=== PATIENT | female | born 1975 | race Caucasian/White ===

== ENCOUNTER 2017-06-26 07:32 | Observation (INO) | payer OTHER, MEDICAID ==
[2017-06-26] MEDS ORDERED: ASPIRIN 81 MG TABLET, CHEWABLE PO ONE (07:45)
[2017-06-26] MEDS ORDERED: NORMAL SALINE 1000 ML 1,000 ML IV ONE (07:45)
[2017-06-26] MEDS ORDERED: DIAZEPAM INJ 10 MG/2 ML DISP.SYRIN IV ONE (07:45)
--- NOTE | 2017-06-26 08:22 | RADIOLOGY REPORT (SQ) ---
EXAM DESCRIPTION: CHEST SINGLE VIEW COMPLETED DATE/TIME: 06/26/2017 8:10 am REASON FOR STUDY: cp COMPARISON: None. EXAM PARAMETERS: NUMBER OF VIEWS: One view. TECHNIQUE: Single frontal radiographic view of the chest acquired. RADIATION DOSE: NA LIMITATIONS: None. FINDINGS: LUNGS AND PLEURA: No opacities, masses or pneumothorax. No pleural effusion. MEDIASTINUM AND HILAR STRUCTURES: No masses. Contour normal. HEART AND VASCULAR STRUCTURES: Heart normal in size. Normal vasculature. BONES: No acute findings. HARDWARE: None in the chest. OTHER: No other significant finding. IMPRESSION: NO ACUTE RADIOGRAPHIC FINDING IN THE CHEST. TECHNICAL DOCUMENTATION: JOB ID: [id number] [employer]- All Rights Reserved Reading location - IP/workstation name: [email or web address]
[2017-06-26 08:34] LABS: ABSOLUTE BASOPHILS # (AUTO) 0.1 10^3/uL (0.0-0.2); ABSOLUTE EOSINOPHILS # (AUTO) 0.1 10^3/uL (0.0-0.6); ABSOLUTE LYMPHOCYTES (AUTO) 1.2 10^3/uL (0.5-4.7); ABSOLUTE MONOCYTES (AUTO) 0.3 10^3/uL (0.1-1.4); ABSOLUTE NEUT (AUTO) 2.5 10^3/uL (1.7-8.2); BASOPHILS % (AUTO) 1.2 % (0-2); EOSINOPHILS % (AUTO) 2.2 % (0-6); HEMATOCRIT 30.2 % (36.0-47.0); HEMOGLOBIN 9.4 g/dL (12.0-15.5); LYMPHOCYTES % (AUTO) 29.6 % (13-45); MEAN CORPUSCULAR HEMOGLOBIN 22.2 pg (27.0-33.4); MEAN CORPUSCULAR VOLUME 72 fl (80-97); MONOCYTES % (AUTO) 6.8 % (3-13); PLATELET COUNT 213 10^3/uL (150-450); RED BLOOD COUNT 4.23 10^6/uL (3.72-5.28); RED CELL DISTRIBUTION WIDTH 18.5 % (11.5-14.0); SEGMENTED NEUTROPHILS % (AUTO) 60.2 % (42-78); TOTAL CELLS COUNTED % (AUTO) 100 %; WHITE BLOOD COUNT 4.2 10^3/uL (4.0-10.5)
[2017-06-26 08:50] LABS: ALANINE AMINOTRANSFERASE 23 U/L (9-52); ALBUMIN 4.2 g/dL (3.5-5.0); ALKALINE PHOSPHATASE 45 U/L (38-126); ANION GAP 10 (5-19); ASPARTATE AMINO TRANSFERASE 16 U/L (14-36); BILIRUBIN,TOTAL 0.6 mg/dL (0.2-1.3); BLOOD UREA NITROGEN 9 mg/dL (7-20); CALCIUM 9.4 mg/dL (8.4-10.2); CARBON DIOXIDE 28 mmol/L (22-30); CHLORIDE 108 mmol/L (98-107); CREATINE KINASE 80 U/L (30-135); GLUCOSE 91 mg/dL (75-110); POTASSIUM 4.1 mmol/L (3.6-5.0); TOTAL PROTEIN 6.8 g/dL (6.3-8.2)
[2017-06-26 09:02] LABS: CREATINE KINASE MB 0.32 ng/mL (<4.55); TROPONIN I < 0.012 ng/mL
--- NOTE | 2017-06-26 09:25 | EKG REPORT ---
SEVERITY:- NORMAL ECG - SINUS RHYTHM : Confirmed by: Marissa Smith 26-Jun-2017 09:24:38
[2017-06-26 09:42] LABS: APPEARANCE,URINE CLEAR; BILIRUBIN,URINE NEGATIVE (NEGATIVE); COLOR,URINE STRAW; GLUCOSE, URINE NEGATIVE (NEGATIVE); KETONES,URINE NEGATIVE (NEGATIVE); LEUKOCYTE ESTERASE,URINE NEGATIVE (NEGATIVE); NITRITE,URINE NEGATIVE (NEGATIVE); PROTEIN,URINE NEGATIVE (NEGATIVE); URINE SPECIFIC GRAVITY 1.004; UROBILINOGEN,URINE NEGATIVE mg/dL (<2.0)
[2017-06-26] MEDS ORDERED: MORPHINE SULFATE 10 MG/ML INJ IV ONE (09:52)
[2017-06-26] MEDS ORDERED: KETOROLAC TROMETHAMINE INJ/PF 30 MG/1 ML SDV IV ONE (10:04)
--- NOTE | 2017-06-26 10:56 | RADIOLOGY REPORT (SQ) ---
EXAM DESCRIPTION: CT HEAD WITHOUT COMPLETED DATE/TIME: 06/26/2017 10:24 am REASON FOR STUDY: left sided heaviness COMPARISON: None. TECHNIQUE: Axial images acquired through the brain without intravenous contrast. Images reviewed wi bone, brain and subdural windows. Additional sagittal and coronal reconstructions were generated. Images stored on PACS. All CT scanners at this facility use dose modulation, iterative reconstruction, and/or weight based d osing when appropriate to reduce radiation dose to as low as reasonably achievable (ALARA). [facility]: Dose Right [facility]: CareDose [facility]: Dose Right [facility]: Teradose 4D [facility]: Megathread RADIATION DOSE: CT Rad equipment meets quality standard of care and radiation dose reduction techniq ues were employed. CTDIvol: 53.2 mGy. DLP: 1044 mGy-cm. mGy. LIMITATIONS: None. FINDINGS: VENTRICLES: Normal size and contour. CEREBRUM: No masses. No hemorrhage. No midline shift. No evidence for acute infarction. Normal gra y/white matter differentiation. No areas of low density in the white matter. CEREBELLUM: No masses. No hemorrhage. No alteration of density. No evidence for acute infarction. EXTRAAXIAL SPACES: No fluid collections. No masses. ORBITS AND GLOBE: No intra- or extraconal masses. Normal contour of globe without masses. CALVARIUM: No fracture. PARANASAL SINUSES: No fluid or mucosal thickening. SOFT TISSUES: No mass or hematoma. OTHER: There is a small amount of air in the cavernous sinuses, right and left temporal fossa soft ti ssues, and along the right retromandibular vein. Findings are likely iatrogenic due to bubbles in th e patient's IV IMPRESSION: No CT evidence of acute ischemic change, acute intracranial hemorrhage, mass effect, or midline shift. Air bubbles in the cavernous sinuses and right and left temporal fossa soft tissues likely related to air in the patient's IV EVIDENCE OF ACUTE STROKE: NO. COMMENT: Quality ID # [id number]: Final reports with documentation of one or more dose reduction techniques (e.g., Automated exposure control, adjustment of the mA and/or kV according to patient size, use of iterative reconstruction technique) TECHNICAL DOCUMENTATION: JOB ID: [id number] [employer]- All Rights Reserved Reading location - IP/workstation name: [email or web address]
--- NOTE | 2017-06-26 11:24 | ER Document Report ---
ED General Pain - General Chief Complaint: Pain All Over Stated Complaint: CHEST PAIN Time Seen by Provider: 06/26/17 07:37 Mode of Arrival: Ambulatory Information source: Patient Notes: Patient is a 42-year-old female who presents to the ER today for chest pain left -sided with left-sided arm heaviness that began last night. Patient states that it worsened this morning and that is what prompted her to come in. She denies any nausea, vomiting, shortness of breath with this pain. Chest pain has resolved this time and she is just complaining of left arm heaviness with some slight left leg tingling. Patient has no history of heart attack, stroke, blood pressure or cholesterol issues, but does have a family history of heart attack and stroke. Patient has a history of renal insufficiency and sometimes has edema to her lower extremities,, high potassium and low sodium and is complaining of overall body cramping at this time. She denies headache. TRAVEL OUTSIDE OF THE [place] IN LAST 30 DAYS: No - Related Data Allergies/Adverse Reactions: No Known Allergies Allergy (Verified 06/26/17 08:27) Past Medical History - General Information source: Patient - Social History Smoking Status: Former Smoker Chew tobacco use (# tins/day): No Frequency of alcohol use: None Drug Abuse: None Family History: Reviewed & Not Pertinent Patient has suicidal ideation: No Patient has homicidal ideation: No Renal/ Medical History: Denies: Hx Peritoneal Dialysis Past Surgical History: Reports: Hx Breast Surgery - left lumpectomy, Hx Genitourinary Surgery - LEEP, Hx Tubal Ligation Review of Systems - Review of Systems Constitutional: No symptoms reported EENT: No symptoms reported Cardiovascular: See HPI Respiratory: No symptoms reported Gastrointestinal: No symptoms reported Genitourinary: No symptoms reported Female Genitourinary: No symptoms reported Musculoskeletal: See HPI Skin: No symptoms reported Hematologic/Lymphatic: No symptoms reported Neurological/Psychological: No symptoms reported Physical Exam - Vital signs Vitals: Temp Pulse Resp BP Pulse Ox 97.7 F 64 18 126/74 H 100 06/26/17 07:35 06/26/17 07:35 06/26/17 07:35 06/26/17 07:35 06/26/17 07:35 - Notes Notes: PHYSICAL EXAMINATION: GENERAL: Well-appearing and in no acute distress. HEAD: Atraumatic, normocephalic. EYES: Pupils equal round and reactive to light, extraocular movements intact, sclera anicteric, conjunctiva are normal. NECK: Normal range of motion, supple without lymphadenopathy LUNGS: CTAB and equal. No wheezes rales or rhonchi. HEART: left chest tender to palpation, Regular rate and rhythm without murmurs ABDOMEN: Soft, no tenderness. No guarding, no rebound BACK: no vertebral tenderness, normal ROM GI/: no CVA tenderness EXTREMITIES: Normal range of motion, no pitting edema. No cyanosis. NEUROLOGICAL: Cranial nerves grossly intact. Normal sensory/motor exams. Good and equal strength bilaterally, Kernig and Brudzinski's signs negative, Romberg' s test normal, normal heel to vincent testing PSYCH: Normal mood, normal affect. SKIN: Warm, Dry, normal turgor, no rashes or lesions noted Course - Re-evaluation Re-evalutation: 06/26/17 11:26 Cardiac enzymes are negative, CT of the head negative for any acute pathology, lab work is unremarkable today, patient feels some better for the muscle cramps with Valium and has had no chest pain, however the left-sided arm heaviness has continued and she describes left arm heaviness/tingling with left leg tingling as well. Neurological exam is normal today. However due to patient's continued symptoms that may be cardiac in nature I have admitted patient to Marlen Mistry, nurse practitioner at this time for trending of cardiac enzymes , possible stress test and chest pain rule out. - Vital Signs Vital signs: Temp Pulse Resp BP Pulse Ox 98.3 F 63 16 114/60 100 06/26/17 15:30 06/26/17 15:46 06/26/17 15:30 06/26/17 15:30 06/26/17 15:30 - Laboratory Result Diagrams: 06/26/17 08:10 06/26/17 08:10 Laboratory results interpreted by me: 06/26/17 06/26/17 08:10 08:10 Hgb 9.4 L Hct 30.2 L MCV 72 L MCH 22.2 L MCHC 31.0 L RDW 18.5 H Sodium 146.0 H Chloride 108 H Discharge - Discharge Clinical Impression: Left arm pain, Left sided chest pain Condition: Stable Disposition: ADMITTED OBSERVATION Admitting Provider: Sarah Cordon willis Unit Admitted: Telemetry
[2017-06-26] MEDS ORDERED: NITROGLYCERIN 0.4 MG/TAB 25 TAB/BOTTLE SL PRN (12:13)
[2017-06-26] MEDS: CYCLOBENZAPRINE HCL 10 MG TABLET PO PRN (13:47)
[2017-06-26] MEDS ORDERED: ACETAMINOPHEN 325 MG TABLET PO PRN (17:42)
--- NOTE | 2017-06-26 18:12 | PDOC H&P ---
History of Present Illness Admission Date/PCP: 06/26/17 12:21 Patient complains of: Chest pain and L sided weakness History of Present Illness: PHILLY MCDANIELS is a 42 year old female who presents to the emergency department with acute onset of chest pain radiating to left arm, palpitations, shortness of breath, and left leg weakness x 24 hours. The patient states she was sitting in class yesterday when her symptoms started. It began is very mild chest pain and left arm weakness, as the day progressed the "heaviness" to her left upper extremity became more pronounced and she developed left lower extremity weakness and paresthesia. The patient states she took 800 mg Motrin to alleviate her symptoms, but she experienced no relief. The patient became concerned this morning when she experienced unrelenting chest pain, in addition to her left-sided weakness, and ataxia. While in the emergency department, the patient received a dose of Valium and Toradol, which she states offered mild relief of her symptoms. Upon assessment, the patient is resting comfortably in bed on room air. She denies chest pain. She endorses left upper and lower extremity weakness and paresthesia. Her left upper extremity paresthesias exacerbated each time the automatic blood pressure cuff is inflated. On exam the patient has notable weakness to the left upper and lower extremities (4/5 strength), +decreased sensation to LUE and LLE extremities. She has mild difficulty with coordination , but no evidence of dysmetria in her upper extremities. No facial asymmetry, she denies paresthesia or decreased sensation to her face. Given the patient's worrisome symptoms, she is being admitted to the hospitalist service. The patient has few risk factors for cardiovascular disease - she has no PMH other than R renal inufficiency (~25% function) and a family history of heart disease. Will consult cardiology and plan for stress test as well as ECHOcardiogram. Additionally, plan to obtain MRI head and Cspine given her presenting symptoms. Again, the patient does not have many risk factors for a stroke, but it is considered to be a possibility. Other differential diagnoses include cord compression and multiple sclerosis. The patient states she works at [employer], and is often lifting heavy objects at work. Past Medical History Renal/ History Note: R RENAL INSUFFICIENCY ~25% FUNCTION Malignancy Medical History: Reports: Breast Cancer, Cervical Cancer Traumatic Medical History: Reports: None Past Surgical History Past Surgical History: Reports: Mastectomy - left, Tubal Ligation Social History Information Source: Patient Lives with: Family Smoking Status: Former Smoker Drugs: None - Advance Directive Resuscitation Status: Full Code Family History Family History: CAD, Hypertension, Other - ckd Parental Family History Reviewed: Yes Children Family History Reviewed: NA Sibling(s) Family History Reviewed.: Yes Medication/Allergy Home Medications: No Home Medications 06/26/17 Allergies/Adverse Reactions: No Known Allergies Allergy (Verified 06/26/17 08:27) Review of Systems Constitutional: PRESENT: headache(s) Eyes: PRESENT: visual disturbances Nose, Mouth, and Throat: PRESENT: headache(s) Cardiovascular: PRESENT: chest pain, palpitations Gastrointestinal: ABSENT: nausea, vomiting Neurological: PRESENT: abnormal gait, confusion, lack of coordination, paresthesias Physical Exam Vital Signs: Temp Pulse Resp BP Pulse Ox 98.3 F 63 16 114/60 100 06/26/17 15:30 06/26/17 15:46 06/26/17 15:30 06/26/17 15:30 06/26/17 15:30 Intake & Output 06/25/17 06/26/17 06/27/17 06:59 06:59 06:59 Weight 109.6 kg General appearance: PRESENT: no acute distress, well-developed, well-nourished Head exam: PRESENT: atraumatic Eye exam: PRESENT: conjunctiva pink, PERRLA Mouth exam: PRESENT: moist Neck exam: PRESENT: full ROM Respiratory exam: PRESENT: clear to auscultation kathrine, symmetrical, unlabored Cardiovascular exam: PRESENT: +S1, +S2 Pulses: PRESENT: normal radial pulses, normal dorsalis pedis pul GI/Abdominal exam: PRESENT: normal bowel sounds, soft. ABSENT: tenderness Rectal exam: PRESENT: deferred Extremities exam: PRESENT: full ROM - 4/5 strenght in LUE and LLE Musculoskeletal exam: PRESENT: full ROM Neurological exam: PRESENT: alert, awake, oriented to person, oriented to place , oriented to time, oriented to situation. ABSENT: normal gait Results Laboratory Results: 06/26/17 14:41 Troponin I < 0.012 Impressions: Chest X-Ray 06/26/17 07:44 IMPRESSION: NO ACUTE RADIOGRAPHIC FINDING IN THE CHEST. Head CT 06/26/17 09:44 IMPRESSION: No CT evidence of acute ischemic change, acute intracranial hemorrhage, mass effect, or midline shift. Air bubbles in the cavernous sinuses and right and left temporal fossa soft tissues likely related to air in the patient's IV EVIDENCE OF ACUTE STROKE: NO. Status: Imported from PACS Assessment & Plan - Diagnosis (1) Chest pain Qualifiers: Chest pain type: unspecified Qualified Code(s): R07.9 - Chest pain, unspecified Is this a current diagnosis for this admission?: Yes Plan: Unclear etiology at this time. Patient endorses a 24-hour history of left- sided chest pain radiating to her left arm. The patient endorses a family history of heart disease, but she herself does not have a history of cardiovascular disease EKG shows normal sinus rhythm, no evidence of acute infarction or ischemia. Troponin<0.012, continue to trend 2 CXR benign Cardiology consulted, plan for echocardiogram and stress test. Daily aspirin Initiate statin therapy (2) Left-sided weakness Is this a current diagnosis for this admission?: Yes Plan: The patient endorses a 24 hour history of left-sided weakness, she states that her left upper extremity and left lower extremity feel "heavy" The patient states she has been experiencing ataxia and vision changes since 24 hrs prior to arrival Patient does not have many risk factors for stroke, she has no history of cardiovascular disease, she is a young (otherwise healthy) female. Other possibilities include cord compression, multiple sclerosis, or (less likely) stress induced psychosomatic symptomology Plan for MRI of head and cervical spine. Talked with radiologist, if head and cspine are negative, will plan for MRI T&L spine tomorrow Aspirin and statin therapy PT OT consult Bedside swallow evaluation - Time Critical Time spent with patient: 15-24 minutes Anticipated discharge: Home Within: Other - unknown at this time - Inpatient Certification Based on my medical assessment, after consideration of the patient's comorbidities, presenting symptoms, or acuity I expect that the services needed warrant INPATIENT care.: Yes I certify that my determination is in accordance with my understanding of Medicare's requirements for reasonable and necessary INPATIENT services [42 CFR 412.3e].: Yes Medical Necessity: Risk of Complication if Not Cared For in Hospital
[2017-06-26] MEDS ORDERED: IBUPROFEN 800 MG TABLET PO ONE (18:30)
[2017-06-26] MEDS: ATORVASTATIN CALCIUM 20 MG TABLET PO SCH (22:44)
[2017-06-27] MEDS: CYCLOBENZAPRINE HCL 10 MG TABLET PO PRN ×2 (00:41→23:51)
[2017-06-27 06:39] LABS: HEMATOCRIT 28.8 % (36.0-47.0); HEMOGLOBIN 9.1 g/dL (12.0-15.5); MEAN CORPUSCULAR HEMOGLOBIN 22.4 pg (27.0-33.4); MEAN CORPUSCULAR HGB CONC 31.6 g/dL (32.0-36.0); MEAN CORPUSCULAR VOLUME 71 fl (80-97); PLATELET COUNT 186 10^3/uL (150-450); RED BLOOD COUNT 4.06 10^6/uL (3.72-5.28); RED CELL DISTRIBUTION WIDTH 18.3 % (11.5-14.0); WHITE BLOOD COUNT 4.6 10^3/uL (4.0-10.5)
[2017-06-27 06:52] LABS: ANION GAP 9 (5-19); BLOOD UREA NITROGEN 12 mg/dL (7-20); CALCIUM 8.9 mg/dL (8.4-10.2); CARBON DIOXIDE 24 mmol/L (22-30); CHLORIDE 111 mmol/L (98-107); CHOLESTEROL 144.72 mg/dL (0-200); GLUCOSE 86 mg/dL (75-110); POTASSIUM 4.3 mmol/L (3.6-5.0); TRIGLYCERIDES 47 mg/dL (<150)
[2017-06-27 07:03] LABS: DIRECT LDL 69 mg/dL (<100)
[2017-06-27 08:03] LABS: ERYTHROCYTE SEDIMENTATION RATE 20 mm/hr (0-20)
--- NOTE | 2017-06-27 08:23 | RADIOLOGY REPORT (SQ) ---
EXAM DESCRIPTION: MRI HEAD COMBO COMPLETED DATE/TIME: 06/26/2017 7:23 pm REASON FOR STUDY: NEW ONSET ATAXIA AND LUE PARASTHESIA COMPARISON: CT brain 06/26/2017 TECHNIQUE: Multiplanar imaging includes noncontrasted T1, T2, FLAIR, diffusion with ADC map and post gadolinium contrast T1 sequences. Images stored on PACS. CONTRAST TYPE AND DOSE: 20 mL Multihance. RENAL FUNCTION: GFR > 60. LIMITATIONS: None. FINDINGS: ANATOMY: No anomalies. Normal vascular flow voids. Pituitary fossa normal. CSF SPACES: Normal in size and contour. No hemorrhage. CEREBRUM: Sulci and gyri normal in size and contour. Normal white matter signal on FLAIR imaging. No evidence of hemorrhage, mass, or extraaxial fluid collection. No abnormal enhancement post contrast. POSTERIOR FOSSA: No signal alteration. No hemorrhage. No edema, masses, or mass effect. Internal marycarmen tory canals, cerebellopontine angles, mastoids normal. No enhancing lesions. No abnormal enhancement post contrast. DIFFUSION IMAGING: Negative for acute or subacute infarction. ORBITS: No masses. Globes normal. PARANASAL SINUSES: No fluid levels. Mucosa normal. OTHER: No other significant finding. IMPRESSION: NORMAL MRI OF THE BRAIN WITHOUT AND WITH INTRAVENOUS GADOLINIUM CONTRAST. EVIDENCE OF ACUTE STROKE: NO. TECHNICAL DOCUMENTATION: JOB ID: [id number] [employer]- All Rights Reserved Reading location - IP/workstation name: [email or web address]
--- NOTE | 2017-06-27 08:26 | RADIOLOGY REPORT (SQ) ---
EXAM DESCRIPTION: MRI CERVICAL SPINE COMBO COMPLETED DATE/TIME: 06/26/2017 7:23 pm REASON FOR STUDY: NEW ONSET LUE PARASTHESIA COMPARISON: CT brain 06/26/2017, MRI brain 06/26/2017 TECHNIQUE: Sagittal and Axial imaging includes T1, T2, STIR and gradient echo sequences. T1 post yolanda olinium sequences. CONTRAST TYPE AND DOSE: 20 mL Multihance. RENAL FUNCTION: GFR > 60. LIMITATIONS: None. FINDINGS: ALIGNMENT: Normal. VERTEBRAE: Intact. BONE MARROW: Normal. No marrow replacement or reactive changes. DISCS: Normal. No significant abnormal signal or loss of height. HARDWARE: None in the spine. CORD AND BASE OF BRAIN: Normal in size and signal intensity. SOFT TISSUES: No soft tissue masses. C1-C2: No significant spinal stenosis. C2-C3: No significant spinal stenosis or exit foraminal stenosis. C3-C4: No significant spinal stenosis or exit foraminal stenosis. C4-C5: No significant spinal stenosis or exit foraminal stenosis. C5-C6: No significant spinal stenosis or exit foraminal stenosis. C6-C7: No significant spinal stenosis or exit foraminal stenosis. Minimal posterior disc bulging. C7-T1: No significant spinal stenosis or exit foraminal stenosis. UPPER THORACIC: Incompletely imaged. No significant spinal stenosis or exit foraminal stenosis. ENHANCEMENT: No abnormal spinal cord or posterior fossa enhancement. No abnormal vertebral body enha ncement or intervertebral disc enhancement. OTHER: No other significant finding. IMPRESSION: NORMAL MRI CERVICAL SPINE WITHOUT AND WITH CONTRAST. COMMENT: None. TECHNICAL DOCUMENTATION: JOB ID: [id number] [employer]- All Rights Reserved Reading location - IP/workstation name: [facility]-RR
--- NOTE | 2017-06-27 09:44 | EKG REPORT ---
SEVERITY:- ABNORMAL ECG - SINUS OR ECTOPIC ATRIAL RHYTHM RIGHT AXIS DEVIATION PROBABLE INFERIOR INFARCT, AGE INDETERMINATE LATERAL LEADS ARE ALSO INVOLVED : Confirmed by: Marissa Smith 27-Jun-2017 09:44:33
[2017-06-27] MEDS: ASPIRIN 81 MG TABLET, CHEWABLE PO SCH (11:09)
--- NOTE | 2017-06-27 12:05 | PDOC CONSULTATION ---
Consultation Consult Date: 06/26/17 Attending physician:: TORIBIO LOYOLA Consult reason:: Chest pain History of Present Illness Admission Date/PCP: 06/26/17 12:21 Patient complains of: Chest pain History of Present Illness: PHILLY MCDANIELS is a 42 year old female who presents to the emergency department with acute onset of chest pain radiating to left arm, palpitations, shortness of breath, and left leg weakness x 24 hours. The patient states she was sitting in class yesterday when her symptoms started. It began is very mild chest pain and left arm weakness, as the day progressed the "heaviness" to her left upper extremity became more pronounced and she developed left lower extremity weakness and paresthesia. The patient states she took 800 mg Motrin to alleviate her symptoms, but she experienced no relief. The patient became concerned this morning when she experienced unrelenting chest pain, in addition to her left-sided weakness, and ataxia. While in the emergency department, the patient received a dose of Valium and Toradol, which she states offered mild relief of her symptoms. Upon assessment, the patient is resting comfortably in bed on room air. She denies chest pain. She endorses left upper and lower extremity weakness and paresthesia. Her left upper extremity paresthesias exacerbated each time the automatic blood pressure cuff is inflated. On exam the patient has notable weakness to the left upper and lower extremities (4/5 strength), +decreased sensation to LUE and LLE extremities. She has mild difficulty with coordination , but no evidence of dysmetria in her upper extremities. No facial asymmetry, she denies paresthesia or decreased sensation to her face. Given the patient's worrisome symptoms, she is being admitted to the hospitalist service. The patient has few risk factors for cardiovascular disease - she has no PMH other than R renal inufficiency (~25% function) and a family history of heart disease. Will consult cardiology and plan for stress test as well as ECHOcardiogram. Additionally, plan to obtain MRI head and Cspine given her presenting symptoms. Again, the patient does not have many risk factors for a stroke, but it is considered to be a possibility. Other differential diagnoses include cord compression and multiple sclerosis. The patient states she works at [email or web address], and is often lifting heavy objects at work. This history was reviewed and confirmed. Patient claims the chest pain does tend to get worse when she uses her left arm. She also describes the chest discomfort getting worse with position, twisting and turning. A 2D echo and a nuclear stress test has already been ordered by the hospitalist with which I agree. Patient is not very confident if she will be able to walk on the treadmill. Past Medical History Cardiac Medical History: Reports: Hyperlipidema Malignancy Medical History: Reports: Breast Cancer, Cervical Cancer Traumatic Medical History: Reports: None Past Surgical History Past Surgical History: Reports: Mastectomy - left, Tubal Ligation Social History Information Source: Patient Lives with: Family Smoking Status: Former Smoker Drugs: None - Advance Directive Resuscitation Status: Full Code Surrogate healthcare decision maker:: Patient's mother is the surrogate decision-maker Family History Family History: CAD Parental Family History Reviewed: Yes Children Family History Reviewed: Yes Sibling(s) Family History Reviewed.: Yes Medication/Allergy Home Medications: Aspirin [Aspirin 81 mg Chewable Tablet] 81 mg PO DAILY tab.chew 06/28/17 Atorvastatin Calcium [Lipitor 20 mg Tablet] 20 mg PO QHS #30 tablet 06/28/17 Cyclobenzaprine HCl [Flexeril 10 mg Tablet] 10 mg PO Q8HP PRN 14 Days #42 tablet 06/28/17 Allergies/Adverse Reactions: No Known Allergies Allergy (Verified 06/26/17 08:27) Review of Systems Review of Systems: Please see history of present illness and past medical history as wall. Constitutional: No fever or chills reported. Head : No recent chronic headaches, recent head injury. Eyes: No recent eye pain, diplopia, redness, discharge, acute visual changes. Ears: No recent chronic ear pain, acute hearing loss, ear discharge. Oral cavity: No recent ulcerations, bleeding, oral cavity discomfort. Neck: No recent acute neck pain reported. Hematologic: No recent easy bruising or bleeding or hematologic malignancy reported. History of breast cancer. Lymphatic: No recent lymphatic malignancy, chronic lymphadenopathy reported yet Cardiovascular system review: See history of present illness. Intermittent pedal edema noted. Edema worse on the left side. Respiratory system review: No recent chronic cough, hemoptysis, blood clots in the lungs reported. Mild Shortness of breath on exertion. Gastrointestinal system review: Negative for any recent acute or chronic abdominal pain, hematemesis, melena, recent change in bowel habits. Genitourinary system review: No recent acute or chronic hematuria, flank pain, UTI etc. reported. Skin system review: Negative for any recent abnormal bruising, no rash, no pruritus reported. Neurologic: No prior history of strokes, mini strokes, seizure disorder. Psychologic: No history of major psychosis or major depression reported. Musculoskeletal: Minor aches and pains reported. No acute joint swelling reported. Endocrine: No recent polyuria, polydipsia, recent heat or cold intolerance. Physical Exam Vital Signs: Temp Pulse Resp BP Pulse Ox 98.3 F 73 16 114/60 100 06/26/17 15:30 06/26/17 19:00 06/26/17 15:30 06/26/17 15:30 06/26/17 15:30 Intake & Output 06/25/17 06/26/17 06/27/17 06:59 06:59 06:59 Intake Total 240 Balance 240 Weight 109.6 kg Exam: GENERAL: well-nourished and in no acute distress. Alert and oriented x3 HEAD: Atraumatic, normocephalic. EYES: Pupils equal round and reactive to light, extraocular movements intact, sclera anicteric, conjunctiva are normal. ENT: TMs normal, nares patent, oropharynx clear without exudates. Moist mucous membranes. No oral ulcerations or bleeding gums noted NECK: supple without lymphadenopathy. Trachea is central. No cervical or axillary lymphadenopathy noted. Carotids are 2+, JVD WNL LUNGS: Respiration seems nonlabored, no significant accessory muscle action noted. Breath sounds clear to auscultation bilaterally and equal noted. No wheezes rales or rhonchi noted. No significant dullness noted on percussion. CHEST: Palpation of the chest wall shows significant chest wall tenderness, left -sided chest. No other significant abnormalities noted. History of mastectomy HEART: [employer], No PSH, 1/6 YEISON aortic area, 1/6 shine systolic murmur mitral area, no rubs, no gallops. ABDOMEN: Soft, no significant tenderness appreciated, normoactive bowel sounds. No guarding, no rebound. No rigidity noted . No masses appreciated. EXTREMITIES: Pedal pulses are 1-2+, no calf tenderness noted. No clubbing or cyanosis. negative pedal edema noted NEUROLOGICAL: Focused neurological exam showed no significant neurologic deficit. Normal speech, no focal weakness appreciated. PSYCH: Normal mood, normal affect. Judgment and insight within normal limits. SKIN: No significant ecchymosis, skin is noted to be warm. MUSCULOSKELETAL EXAM: No significant acute joint swelling noted. Results Laboratory Results: 06/26/17 14:41 Troponin I < 0.012 EKG Comments: Sinus rhythm, no acute ST-T wave changes are noted. Impressions: Chest X-Ray 06/26/17 07:44 IMPRESSION: NO ACUTE RADIOGRAPHIC FINDING IN THE CHEST. Head CT 06/26/17 09:44 IMPRESSION: No CT evidence of acute ischemic change, acute intracranial hemorrhage, mass effect, or midline shift. Air bubbles in the cavernous sinuses and right and left temporal fossa soft tissues likely related to air in the patient's IV EVIDENCE OF ACUTE STROKE: NO. Assessment & Plan - Diagnosis (1) Chest pain Qualifiers: Chest pain type: unspecified Qualified Code(s): R07.9 - Chest pain, unspecified Is this a current diagnosis for this admission?: Yes (2) Left arm pain Is this a current diagnosis for this admission?: Yes (3) Left-sided weakness Is this a current diagnosis for this admission?: Yes (4) Anemia Qualifiers: Anemia type: unspecified type Qualified Code(s): D64.9 - Anemia, unspecified Is this a current diagnosis for this admission?: Yes (5) Obesity Qualifiers: Obesity type: unspecified obesity type Obesity classification: unspecified obesity classification Is this a current diagnosis for this admission?: Yes (6) HLD (hyperlipidemia) Qualifiers: Hyperlipidemia type: unspecified Qualified Code(s): E78.5 - Hyperlipidemia , unspecified Is this a current diagnosis for this admission?: Yes - Notes Notes: Chest pain: [place] to be musculoskeletal. Agree that patient will benefit from 2D echocardiogram and a stress test given her other symptoms. These were already ordered by the hospitalist. Will get them performed. Left arm pain: Exact etiology not clear. Agree with MRI of the spine. Left-sided weakness: Exact etiology not clear. Agree with MRI of the brain and CT scan of the brain. MRI brain results not available. Anemia: Patient is noted to have mild anemia. May consider workup. Obesity: Patient will benefit from weight loss, increasing physical activity, calorie restriction. Discussed that she might benefit from sleep study as an outpatient as she does have problems with both falling asleep and staying asleep. Dyslipidemia: Continue current statin therapy at current dose. - Time Time Spent: 30 to 50 Minutes Medications reviewed and adjusted accordingly: Yes
[2017-06-27] MEDS ORDERED: REGADENOSON INJ 0.4 MG/5 ML DISP.SYRIN IV ONE (12:41)
[2017-06-27] MEDS ORDERED: AMINOPHYLLINE INJ/PF 250 MG/10 ML SDV IV ONE (12:41)
--- NOTE | 2017-06-27 13:19 | DRAGON STRESS TEST REPORT ---
INTRAVENOUS LEXISCAN CARDIOLITE STRESS TEST USING SINGLE PHOTON EMMISION COMPUTERIZED TOMOGRAPHIC. DATE OF PROCEDURE: June 27, 2017, INDICATION : Chest pain CARDIAC RISK FACTORS: Dyslipidemia, family history of heart disease RESTING EKG: Sinus rhythm without any baseline ST-T wave changes STRESS EKG: No significant ST segment changes noted with LexiScan bolus REASON FOR TERMINATION: Protocol. PROCEDURE REPORT: Baseline heart rate 66 beats per minute with blood pressure of 102/64. Patient had no significant complaints. Patient was bolused with Lexiscan 0.4 mg intravenously followed by saline bolus. Heart rate at 2 minutes post bolus 91 with a blood pressure of 107/51. 3 minutes post bolus heart rate 86 with blood pressure of 105/58. Peak heart rate was at 1 minute post bolus at 111. No significant EKG changes were noted. Patient had no significant complaints during the procedure or postprocedure. Patient injected with Aminophyllin 75 mg at 3 minutes or later after Lexiscan bolus. CONCLUSIONS: Normal EKG and hemodynamic response to IV LexiScan. NUCLEAR DATA: At rest the patient was given 14.45 millicuries of technetium 99 sestamibi injected intravenously. As per protocol rest gated SPECT images were obtained. On day of stress test, the patient was given intravenous LexiScan at a dose of 0.4 mg in 5 mL intravenously, followed by flush with normal saline. Subsequently the stress dose of 43.6 millicuries of technetium 99 sestamibi was injected intravenously. As per protocol stress gated images were obtained. NUCLEAR INTERPRETATION: Both raw and processed data were used for interpretation. Visual, qualitative, computer-generated quantitative data was used. There was good myocardial uptake of technetium compound. Motion artifact and soft tissue attenuations were noted. Increased visceral uptake was noted, this did cause some difficulty with interpretation of the inferior wall perfusion. Mild decreased uptake was noted in the basal and mid inferior wall, SDS of 2, but no corresponding wall motion abnormalities noted. [place] to be related to diaphragmatic attenuation artifact/visceral subtraction artifact. On raw images, perfusion seemed intact. No definitive areas of transient perfusion defect noted, No definitive areas of fixed perfusion defect or scars noted. EKG gated imaging showed LV EF at 44 %, rest and stress gated EF similar visually. T. I D. ratio was 1.12. Lung heart ratio noted to be within normal limits 0.30. No significant extracardiac and abnormal radiotracer activities were noted. RV free wall uptake was noted to be WNL. IMPRESSION: Also refer to comments under nuclear interpretation. Also test results needs to be interpreted in the context of pretest probability. 1. No definitive areas of transient perfusion defect noted. 2. There is no definitive scintigraphic evidence of myocardial infarction/scar. 3. EKG gated imaging shows left ventricular ejection fraction of approx. 44 %. 4. Clinical correlation requested as occasionally single vessel disease or balanced ischemia could be missed. In approximately 10% of the cases Lexiscan may not cause adequate vasodilatory stress. RECOMMENDATIONS: Aggressive risk factor modification and medical management. Further evaluation may be needed if continued symptoms or other high risk indicators are noted on clinical evaluation. Close cardiology follow-up is also recommended. Clinical correlation with echocardiogram derived ejection fraction. Inability to exercise by itself can lead to increased cardiovascular event risks. Consider cardiology consultation and or follow-up if clinically indicated. I am available for cardiology evaluation and consultation if requested by the decorator store, unless patient already has a environmental test technician. LORETTA
--- NOTE | 2017-06-27 16:56 | RADIOLOGY REPORT (SQ) ---
EXAM DESCRIPTION: CAROTID DOPPLER COMPLETED DATE/TIME: 06/27/2017 4:46 pm REASON FOR STUDY: new L sided weakness COMPARISON: MRI brain 06/26/2017 CT brain 06/26/2017 TECHNIQUE: Grayscale ultrasound, Doppler velocity and spectra, and color Doppler images acquired of the extra-cranial carotid and vertebral arteries. Images stored on PACS. LIMITATIONS: None. FINDINGS: RIGHT CAROTID CCA Velocities: Within normal limits. ICA Velocities Peak systolic 0.75 m/s. End diastolic 0.23 m/s. Proximal ICA/CCA peak systolic ratio 1.0. Spectra normal. No significant plaque. LEFT CAROTID CCA Velocities: Within normal limits. ICA Velocities Peak systolic 1.02 m/s. End diastolic 0.34 m/s. Proximal ICA/CCA peak systolic ratio 1.2. Spectra normal. No significant plaque. VERTEBRAL ARTERIES: Antegrade flow. Normal waveforms. SUBCLAVIAN ARTERIES: Not evaluated OTHER: No other significant finding. IMPRESSION: NO HEMODYNAMICALLY SIGNIFICANT STENOSIS. COMMENT: Quality ID #[id number]: Velocity criteria are extrapolated from the diameter data as defined by t he Society of Radiologists in Ultrasound Consensus Conference. Radiology 2003: 229; 340-346. TECHNICAL DOCUMENTATION: JOB ID: [id number] [employer]- All Rights Reserved Reading location - IP/workstation name: [email or web address]
--- NOTE | 2017-06-27 16:59 | PDOC PROGRESS REPORT ---
Subjective Progress Note for:: 06/27/17 Subjective:: PHILLY MCDANIELS is a 42 year old female who presented to the emergency department with chest pain, weakness to her LUE and LLE, and ataxia. Her only PMH is R renal insufficiency (~25% functioning). The patient was seen this afternoon on rounds following her cardiac stress test. The patient is awake and resting in bed. She continues to endorse left- sided weakness, although she states her paresthesia has mildly improved in her left upper extremity. She denies chest pain or shortness of breath. MRI of head and C-spine are normal. Cardiac stress test, per Dr. Smith, was normal. The patient is currently awaiting an echocardiogram and carotid Dopplers. Reason For Visit: CHEST PAIN; L SIDED PARASTHESIA Physical Exam Vital Signs: Temp Pulse Resp BP Pulse Ox 97.8 F 74 17 109/64 100 06/27/17 11:00 06/27/17 14:00 06/27/17 11:00 06/27/17 11:00 06/27/17 11:00 Intake & Output 06/26/17 06/27/17 06/28/17 06:59 06:59 06:59 Intake Total 690 Balance 690 Weight 106.1 kg General appearance: PRESENT: no acute distress, well-developed, well-nourished Eye exam: PRESENT: conjunctiva pink, PERRLA Mouth exam: PRESENT: moist, tongue midline, other - No evidence of facial droop or unilateral deficits of the face Neck exam: PRESENT: full ROM Respiratory exam: PRESENT: clear to auscultation kathrine, symmetrical, unlabored Cardiovascular exam: PRESENT: RRR, +S1, +S2 Pulses: PRESENT: normal radial pulses, normal dorsalis pedis pul GI/Abdominal exam: PRESENT: normal bowel sounds, soft. ABSENT: tenderness Rectal exam: PRESENT: deferred Extremities exam: PRESENT: full ROM - 4/5 strenght in LUE and LLE Musculoskeletal exam: PRESENT: ambulatory, full ROM - 4/5 strenght in LUE and LLE Neurological exam: PRESENT: alert, awake, oriented to person, oriented to place , oriented to time, oriented to situation Psychiatric exam: PRESENT: appropriate affect Results Laboratory Results: 06/27/17 06:11 06/27/17 06:11 06/27/17 06/27/17 06/27/17 06:11 06:11 06:11 WBC 4.6 RBC 4.06 Hgb 9.1 L Hct 28.8 L MCV 71 L MCH 22.4 L MCHC 31.6 L RDW 18.3 H Plt Count 186 Sodium 144.0 Potassium 4.3 Chloride 111 H Carbon Dioxide 24 Anion Gap 9 BUN 12 Creatinine 0.73 Est GFR ( Amer) > 60 Est GFR (Non-Af Amer) > 60 Glucose 86 Calcium 8.9 Phosphorus 4.0 Magnesium 1.9 Triglycerides 47 Cholesterol 144.72 LDL Cholesterol Direct 69 VLDL Cholesterol 9.0 L HDL Cholesterol 55 TSH 2.61 06/26/17 06/26/17 06/27/17 14:41 20:02 02:10 Troponin I < 0.012 < 0.012 < 0.012 Impressions: Cervical Spine MRI 06/26/17 00:00 IMPRESSION: NORMAL MRI CERVICAL SPINE WITHOUT AND WITH CONTRAST. Head MRI 06/26/17 00:00 IMPRESSION: NORMAL MRI OF THE BRAIN WITHOUT AND WITH INTRAVENOUS GADOLINIUM CONTRAST. EVIDENCE OF ACUTE STROKE: NO. Chest X-Ray 06/26/17 07:44 IMPRESSION: NO ACUTE RADIOGRAPHIC FINDING IN THE CHEST. Head CT 06/26/17 09:44 IMPRESSION: No CT evidence of acute ischemic change, acute intracranial hemorrhage, mass effect, or midline shift. Air bubbles in the cavernous sinuses and right and left temporal fossa soft tissues likely related to air in the patient's IV EVIDENCE OF ACUTE STROKE: NO. Status: Imported from PACS Assessment & Plan - Diagnosis (1) Chest pain Qualifiers: Chest pain type: unspecified Qualified Code(s): R07.9 - Chest pain, unspecified Is this a current diagnosis for this admission?: Yes Plan: Unclear etiology at this time. Patient endorses a 24-hour history of left- sided chest pain radiating to her left arm. The patient endorses a family history of heart disease, but she herself does not have a history of cardiovascular disease EKG shows normal sinus rhythm, no evidence of acute infarction or ischemia. Serial troponin<0.012, no longer trending CXR benign Cardiology consulted. Stress test completed today, per Dr. Smith, results were normal. Patient still awaiting echocardiogram Daily aspirin and statin therapy (2) Left-sided weakness Is this a current diagnosis for this admission?: Yes Plan: The patient endorses a 48 hour history of left-sided weakness, she states that her left upper extremity and left lower extremity feel "heavy" The patient states she has been experiencing ataxia and vision changes since 24 hrs prior to arrival MRI of head and cervical spine normal. Plan for carotid Doppler to complete TIA workup. Aspirin and statin therapy PT OT worked with the patient today. They state that the patient is safe to get up out of bed as long as there is standby assistance, including family members. The patient was able to ambulate, although she needs constant reminder to lift her left leg while ambulating. Bedside swallow evaluation completed by nursing staff, patient able to tolerate all p.o. intake. If carotid doppler is negative, and there is no indication for her L sided weakness, plan to discharge patient home and have her follow-up with an outpatient neurologist. (3) Renal insufficiency Is this a current diagnosis for this admission?: Yes Plan: Patient endorses a history of right renal insufficiency, stating that her kidney only functions at approximately 25%. Creatinine 0.73 today. Patient voiding without difficulty. Avoid nephrotoxic medications. - Time Time Spent with patient: 15-24 minutes Medications reviewed and adjusted accordingly: Yes Anticipated discharge: Home Within: within 36 hours - Inpatient Certification Based on my medical assessment, after consideration of the patient's comorbidities, presenting symptoms, or acuity I expect that the services needed warrant INPATIENT care.: Yes I certify that my determination is in accordance with my understanding of Medicare's requirements for reasonable and necessary INPATIENT services [42 CFR 412.3e].: Yes Medical Necessity: Risk of Complication if Not Cared For in Hospital - Plan Summary Plan Summary: At this time, the patient is currently waiting to have her echocardiogram and carotid Dopplers completed. Will have better idea regarding treatment plan following the completion of these 2 tests.
--- NOTE | 2017-06-27 19:12 | XCELERA REPORT ---
[address] [address] Transthoracic Echocardiogram Report Name: PHILLY MCDANIELS Age: 42 yrs Gender: Female : 1975 Patient Status: Inpatient Patient Location: [address] [place] [address] Study Date: 06/27/2017 03:17 PM Height: 69 in Weight: 236 lb BSA: 2.2 m2 Procedure: A complete two-dimensional transthoracic echocardiogram was performed (2D, M-mode, spectral and color flow Doppler). The study was technically adequate with some images being suboptimal in quality. Reason For Study: CHEST PAIN Ordering Physician: EVELIA GALVAN Performed By: Nichelle Campos Interpretation Summary Left ventricular systolic function is low normal. Doppler measurements suggest normal left ventricular diastolic function There is normal left ventricular wall thickness. The left ventricle is grossly normal size. No regional wall motion abnormalities noted. The right ventricular systolic function is normal. The right ventricle is grossly normal size. The left atrial size is normal. The right atrium is normal in size There is a trace to mild amount of mitral regurgitation There is no mitral valve stenosis. There is no aortic valve stenosis No aortic regurgitation is present. There is a trace or physiologic amount of tricuspid regurgitation Tricuspid regurgitation jet envelope not well defined to measure RV systolic pressure accurately. The aortic root is not well visualized but is probably normal size. The inferior vena cava appeared normal and decreased < 50% with respiration (RAP 10-15 mmHg) There is no pericardial effusion. MMode/2D Measurements & Calculations RVDd: 2.7 cm LVIDd: 5.1 cm FS: 31.8 % Ao root diam: 2.8 cm IVSd: 0.80 cm LVIDs: 3.5 cm EDV(Teich): 123.5 ml LVPWd: 0.99 cm ESV(Teich): 49.9 ml Ao root area: 6.3 cm2 EF(Teich): 59.6 % Doppler Measurements & Calculations MV E max reno: MV dec slope: Ao V2 max: LV V1 max P.5 cm/sec 166.9 cm/sec 5.2 mmHg MV A max reno: 336.8 cm/sec2 Ao max PG: LV V1 max: 52.4 cm/sec MV dec time: 11.1 mmHg 114.0 cm/sec MV E/A: 1.6 0.25 sec PA V2 max: TR max reno: 91.0 cm/sec 205.6 cm/sec PA max PG: TR max P.9 mmHg 3.3 mmHg Left Ventricle The left ventricle is grossly normal size. There is normal left ventricular wall thickness. Left ventricular systolic function is low normal. Doppler measurements suggest normal left ventricular diastolic function. No regional wall motion abnormalities noted. Right Ventricle The right ventricle is grossly normal size. There is normal right ventricular wall thickness. The right ventricular systolic function is normal. Atria The right atrium is normal in size. The left atrial size is normal. Interarterial septum not well visualized and not well dopplered. Cannot comment on ASD/PFO presence. Mitral Valve The mitral valve is grossly normal. There is no mitral valve stenosis. There is a trace to mild amount of mitral regurgitation. Aortic Valve The aortic valve is normal in structure and functions normally. There is no aortic valve stenosis. No aortic regurgitation is present. Tricuspid Valve The tricuspid valve is not well visualized, but is grossly normal. There is no tricuspid stenosis. There is a trace or physiologic amount of tricuspid regurgitation. Tricuspid regurgitation jet envelope not well defined to measure RV systolic pressure accurately. Pulmonic Valve The pulmonic valve is not well visualized. Great Vessels The aortic root is not well visualized but is probably normal size. The inferior vena cava appeared normal and decreased < 50% with respiration (RAP 10-15 mmHg). Effusions There is no pericardial effusion. : EVELIA GALVAN > Marissa Smith
--- NOTE | 2017-06-27 20:23 | PDOC PROGRESS REPORT ---
Subjective Progress Note for:: 06/27/17 Subjective:: Patient seems to be doing better with gradual improvement. Chest pain has improved. He still has some numbness and heaviness left-sided body. Patient denying any PND, orthopnea. Patient denied any sustained palpitations, dizziness, syncope, near syncope. Patient denying any fever chills. Patient denying any other significant discomfort. Patient is maintaining sinus rhythm. Review of systems: Rest review of systems negative. Medications: Medications have been reviewed. Reason For Visit: CHEST PAIN; L SIDED PARASTHESIA Physical Exam Vital Signs: Temp Pulse Resp BP Pulse Ox 97.8 F 78 17 109/64 100 06/27/17 11:00 06/27/17 19:00 06/27/17 11:00 06/27/17 11:00 06/27/17 11:00 Intake & Output 06/26/17 06/27/17 06/28/17 06:59 06:59 06:59 Intake Total 690 1140 Balance 690 1140 Weight 106.1 kg Exam: GENERAL: well-nourished and in no acute distress. Alert and oriented x3 HEAD: Atraumatic, normocephalic. EYES: Pupils equal round and reactive to light, extraocular movements intact, sclera anicteric, conjunctiva are normal. ENT: TMs normal, nares patent, oropharynx clear without exudates. Moist mucous membranes. No oral ulcerations or bleeding gums noted NECK: supple without lymphadenopathy. Trachea is central. No cervical or axillary lymphadenopathy noted. Carotids are 2+, JVD WNL LUNGS: Respiration seems nonlabored, no significant accessory muscle action noted. Breath sounds clear to auscultation bilaterally and equal noted. No wheezes rales or rhonchi noted. No significant dullness noted on percussion. CHEST: Palpation of the chest wall shows mild left-sided chest wall tenderness. No other significant abnormalities noted. 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 ABDOMEN: Soft, no significant tenderness appreciated, normoactive bowel sounds. No guarding, no rebound. No rigidity noted . No masses appreciated. EXTREMITIES: Pedal pulses are 1-2+, no calf tenderness noted. No clubbing or cyanosis. negative pedal edema noted NEUROLOGICAL: Focused neurological exam showed no significant neurologic deficit. Normal speech, no focal weakness appreciated. PSYCH: Normal mood, normal affect. Judgment and insight within normal limits. SKIN: No significant ecchymosis, skin is noted to be warm. MUSCULOSKELETAL EXAM: No significant acute joint swelling noted. Results Laboratory Results: 06/27/17 06:11 06/27/17 06:11 06/27/17 06/27/17 06/27/17 06:11 06:11 06:11 WBC 4.6 RBC 4.06 Hgb 9.1 L Hct 28.8 L MCV 71 L MCH 22.4 L MCHC 31.6 L RDW 18.3 H Plt Count 186 Sodium 144.0 Potassium 4.3 Chloride 111 H Carbon Dioxide 24 Anion Gap 9 BUN 12 Creatinine 0.73 Est GFR ( Amer) > 60 Est GFR (Non-Af Amer) > 60 Glucose 86 Calcium 8.9 Phosphorus 4.0 Magnesium 1.9 Triglycerides 47 Cholesterol 144.72 LDL Cholesterol Direct 69 VLDL Cholesterol 9.0 L HDL Cholesterol 55 TSH 2.61 06/26/17 06/26/17 06/27/17 14:41 20:02 02:10 Troponin I < 0.012 < 0.012 < 0.012 EKG Comments: Showed sinus rhythm without any sustained tachycardia or bradycardia. Impressions: Cervical Spine MRI 06/26/17 00:00 IMPRESSION: NORMAL MRI CERVICAL SPINE WITHOUT AND WITH CONTRAST. Head MRI 06/26/17 00:00 IMPRESSION: NORMAL MRI OF THE BRAIN WITHOUT AND WITH INTRAVENOUS GADOLINIUM CONTRAST. EVIDENCE OF ACUTE STROKE: NO. Chest X-Ray 06/26/17 07:44 IMPRESSION: NO ACUTE RADIOGRAPHIC FINDING IN THE CHEST. Head CT 06/26/17 09:44 IMPRESSION: No CT evidence of acute ischemic change, acute intracranial hemorrhage, mass effect, or midline shift. Air bubbles in the cavernous sinuses and right and left temporal fossa soft tissues likely related to air in the patient's IV EVIDENCE OF ACUTE STROKE: NO. Carotid Doppler Study 06/27/17 00:00 IMPRESSION: NO HEMODYNAMICALLY SIGNIFICANT STENOSIS. Assessment & Plan - Diagnosis (1) Chest pain Qualifiers: Chest pain type: unspecified Qualified Code(s): R07.9 - Chest pain, unspecified Is this a current diagnosis for this admission?: Yes (3) Left-sided weakness Is this a current diagnosis for this admission?: Yes (4) Anemia Qualifiers: Anemia type: unspecified type Qualified Code(s): D64.9 - Anemia, unspecified Is this a current diagnosis for this admission?: Yes - Notes Notes: Chest pain: Improved. Nuclear stress test was negative for any significant pharmacologic stress-induced ischemia. Left arm pain: Improved Left-sided weakness: Persistent but better. Anemia: May consider anemia workup as an outpatient. Patient might benefit from outpatient follow-up possibly a sleep study etc. because of continuing symptoms of fatigue and tiredness. - Time Time with patient: Greater than 35 minutes - Patient was seen multiple times. Total time exceeds 40 minutes. In the morning nuclear stress test procedure, risks benefits, alternatives were discussed. Patient seen during the stress test. Patient also seen after stress test when results were discussed with the patient in detail. Patient's questions were answered. Nuclear stress test results were discussed with the patient. Patient was informed that no definitive evidence of pharmacologic stress-induced ischemia noted. No definite fixed defects were noted. Patient informed that occasionally significant single vessel disease or balanced ischemia could be missed. However based on the current study results, would recommend aggressive risk factor modification and medical therapy. It may also be worthwhile to consider evaluation or empiric management of other causes of chest pain. Should no other cause be found and if persistent in having chest pain, then cardiac catheterization should be considered. Right now, recommendations are for aggressive risk factor modification and medical management. CODE STATUS was discussed, patient remains full code. Surrogate decision-maker unchanged. Multiple medical problems were addressed. More than 50% of the time spent coordinating care, discussing management plans with involved caregivers. Management plans discussed with involved personnels. Medical decision making was of moderate to high complexity, patient's has multiple comorbidities. Medications reviewed and adjusted accordingly: Yes
[2017-06-27] MEDS: ATORVASTATIN CALCIUM 20 MG TABLET PO SCH (23:42)
--- NOTE | 2017-06-28 02:59 | Physician Advisory Note ---
Physician Advisor ProgressNote .: Pursuant to the plan for [facility], I have reviewed the medical record for this patient. Physician Advisor Statement: Please consider documenting, if you agree: 1. "CP, suspect due to " 2. ? "Lt hemiparesis, suspect due to " Thanks! CK
--- NOTE | 2017-06-28 11:21 | PDOC PROGRESS REPORT ---
Subjective Progress Note for:: 06/28/17 Subjective:: Patient seems to be doing better with gradual improvement. Chest pain has improved. Patient still has some numbness and heaviness left-sided body but currently improved. Patient denying any PND, orthopnea. Patient denied any sustained palpitations, dizziness, syncope, near syncope. Patient denying any fever chills. Patient denying any other significant discomfort. So far evaluation into left-sided weakness and chest pain has been negative. Patient is maintaining sinus rhythm. Review of systems: Rest review of systems negative. Medications: Medications have been reviewed. Reason For Visit: CHEST PAIN; L SIDED PARASTHESIA Physical Exam Vital Signs: Temp Pulse Resp BP Pulse Ox 98.3 F 61 18 107/54 L 98 06/28/17 03:35 06/28/17 07:00 06/28/17 03:35 06/28/17 03:35 06/28/17 03:35 Intake & Output 06/27/17 06/28/17 06/29/17 06:59 06:59 06:59 Intake Total 690 1440 Output Total 0 Balance 690 1440 Weight 106.1 kg 101.7 kg Exam: GENERAL: well-nourished and in no acute distress. Alert and oriented x3 HEAD: Atraumatic, normocephalic. EYES: Pupils equal round and reactive to light, extraocular movements intact, sclera anicteric, conjunctiva are normal. ENT: TMs normal, nares patent, oropharynx clear without exudates. Moist mucous membranes. No oral ulcerations or bleeding gums noted NECK: supple without lymphadenopathy. Trachea is central. No cervical or axillary lymphadenopathy noted. Carotids are 2+, JVD WNL LUNGS: Respiration seems nonlabored, no significant accessory muscle action noted. Breath sounds clear to auscultation bilaterally and equal noted. No wheezes rales or rhonchi noted. No significant dullness noted on percussion. CHEST: Palpation of the chest wall shows no significant chest wall tenderness. No other significant abnormalities noted. 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 ABDOMEN: Soft, no significant tenderness appreciated, normoactive bowel sounds. No guarding, no rebound. No rigidity noted . No masses appreciated. EXTREMITIES: Pedal pulses are 1-2+, no calf tenderness noted. No clubbing or cyanosis. negative pedal edema noted NEUROLOGICAL: Focused neurological exam showed no significant neurologic deficit. Normal speech, no focal weakness appreciated. PSYCH: Normal mood, normal affect. Judgment and insight within normal limits. SKIN: No significant ecchymosis, skin is noted to be warm. MUSCULOSKELETAL EXAM: No significant acute joint swelling noted. Results Laboratory Results: 06/27/17 06:11 06/27/17 06:11 06/26/17 06/26/17 06/27/17 14:41 20:02 02:10 Troponin I < 0.012 < 0.012 < 0.012 EKG Comments: Telemetry strips shows sinus rhythm without any sustained tachycardia or bradycardia. Impressions: Cervical Spine MRI 06/26/17 00:00 IMPRESSION: NORMAL MRI CERVICAL SPINE WITHOUT AND WITH CONTRAST. Head MRI 06/26/17 00:00 IMPRESSION: NORMAL MRI OF THE BRAIN WITHOUT AND WITH INTRAVENOUS GADOLINIUM CONTRAST. EVIDENCE OF ACUTE STROKE: NO. Chest X-Ray 06/26/17 07:44 IMPRESSION: NO ACUTE RADIOGRAPHIC FINDING IN THE CHEST. Head CT 06/26/17 09:44 IMPRESSION: No CT evidence of acute ischemic change, acute intracranial hemorrhage, mass effect, or midline shift. Air bubbles in the cavernous sinuses and right and left temporal fossa soft tissues likely related to air in the patient's IV EVIDENCE OF ACUTE STROKE: NO. Carotid Doppler Study 06/27/17 00:00 IMPRESSION: NO HEMODYNAMICALLY SIGNIFICANT STENOSIS. Assessment & Plan - Diagnosis (1) Chest pain Qualifiers: Chest pain type: unspecified Qualified Code(s): R07.9 - Chest pain, unspecified Is this a current diagnosis for this admission?: Yes (2) Left arm pain Is this a current diagnosis for this admission?: Yes (3) Left-sided weakness Is this a current diagnosis for this admission?: Yes (4) Anemia Qualifiers: Anemia type: unspecified type Qualified Code(s): D64.9 - Anemia, unspecified Is this a current diagnosis for this admission?: Yes (5) Obesity Qualifiers: Obesity type: unspecified obesity type Obesity classification: unspecified obesity classification Is this a current diagnosis for this admission?: Yes (6) HLD (hyperlipidemia) Qualifiers: Hyperlipidemia type: unspecified Qualified Code(s): E78.5 - Hyperlipidemia , unspecified Is this a current diagnosis for this admission?: Yes - Notes Notes: Chest pain: Seems resolved. Most likely musculoskeletal with possible underlying anxiety depression. Cannot rule out gastroesophageal reflux. Left arm pain: Improved Left-sided weakness: Improved Anemia: Hemoglobin is stable. Further workup can be completed as an outpatient. Obesity: This was evaluated further and it seems patient may have underlying sleep disorder. Patient has been advised to follow-up with me to see if she would need a sleep study scheduled. Discussed that sleep apnea and obesity are both associated with increased inflammatory markers. Hyperlipidemia: Continue with statin therapy. May consider vitamin D and coenzyme Q supplementation - Time Time with patient: 15-25 minutes - CODE STATUS was discussed, patient remains full code. Surrogate decision-maker unchanged. Multiple medical problems were addressed. More than 50% of the time spent coordinating care, discussing management plans with involved caregivers. Management plans discussed with involved personnels. Medical decision making was of moderate to high complexity , patient's has multiple comorbidities. Medications reviewed and adjusted accordingly: Yes
[2017-06-28] MEDS: ASPIRIN 81 MG TABLET, CHEWABLE PO SCH (11:25)
[2017-06-28 11:28] VITALS: BP 106/57
--- NOTE | 2017-07-12 07:47 | PDOC DISCHARGE SUMMARY ---
General - Admit/Disc Date/PCP Admission Date/Primary Care Provider: 06/26/17 12:21 Discharge Date: 06/28/17 - Discharge Diagnosis (1) Chest pain Is this a current diagnosis for this admission?: Yes Summary: Unclear etiology. Patient endorses a 24-hour history of left-sided chest pain radiating to her left arm. The patient endorses a family history of heart disease, but she herself does not have a history of cardiovascular disease EKG shows normal sinus rhythm, no evidence of acute infarction or ischemia. Serial troponin<0.012 CXR benign Cardiology consulted. Stress test completed today, per Dr. Smith, results were normal. Echocardiogram normal Daily aspirin and statin therapy, continue post discharge It is possible that her chest pain is muscular. The patient was discharged with a prescription for Flexeril. (2) Left-sided weakness Is this a current diagnosis for this admission?: Yes Summary: The patient endorses a 48 hour history of left-sided weakness, she states that her left upper extremity and left lower extremity feel "heavy" The patient states she has been experiencing ataxia and vision changes since 24 hrs prior to arrival MRI of head and cervical spine normal. Carotid Doppler benign. Aspirin and statin therapy PT OT worked with the patient today. They state that the patient is safe to get up out of bed as long as there is standby assistance, including family members. The patient was able to ambulate with a walker, was discharged from [facility] with a walker. Bedside swallow evaluation completed by nursing staff, patient able to tolerate all p.o. intake. Patient was discharged home with f/u to an outpatient neurologist. (3) Renal insufficiency Is this a current diagnosis for this admission?: Yes Summary: Patient endorses a history of right renal insufficiency, stating that her kidney only functions at approximately 25%. Creatinine WNL throughout hospitalization. Patient voiding without difficulty. Avoid nephrotoxic medications. - Additional Information Resuscitation Status: Full Code Discharge Diet: As Tolerated, Regular Discharge Activity: Activity As Tolerated Prescriptions: Atorvastatin Calcium [Lipitor 20 mg Tablet] 20 mg PO QHS #30 tablet Cyclobenzaprine HCl [Flexeril 10 mg Tablet] 10 mg PO Q8HP PRN 14 Days #42 tablet PRN Reason: muscle spams Home Medications: Aspirin [Aspirin 81 mg Chewable Tablet] 81 mg PO DAILY tab.chew 06/28/17 Atorvastatin Calcium [Lipitor 20 mg Tablet] 20 mg PO QHS #30 tablet 06/28/17 Cyclobenzaprine HCl [Flexeril 10 mg Tablet] 10 mg PO Q8HP PRN 14 Days #42 tablet 06/28/17 History of Present Illness History of Present Illness: PHILLY MCDANIELS is a 42 year old female who presents to the emergency department with acute onset of chest pain radiating to left arm, palpitations, shortness of breath, and left leg weakness x 24 hours. The patient states she was sitting in class yesterday when her symptoms started. It began is very mild chest pain and left arm weakness, as the day progressed the "heaviness" to her left upper extremity became more pronounced and she developed left lower extremity weakness and paresthesia. The patient states she took 800 mg Motrin to alleviate her symptoms, but she experienced no relief. The patient became concerned this morning when she experienced unrelenting chest pain, in addition to her left-sided weakness, and ataxia. While in the emergency department, the patient received a dose of Valium and Toradol, which she states offered mild relief of her symptoms. Upon assessment, the patient is resting comfortably in bed on room air. She denies chest pain. She endorses left upper and lower extremity weakness and paresthesia. Her left upper extremity paresthesias exacerbated each time the automatic blood pressure cuff is inflated. On exam the patient has notable weakness to the left upper and lower extremities (4/5 strength), +decreased sensation to LUE and LLE extremities. She has mild difficulty with coordination , but no evidence of dysmetria in her upper extremities. No facial asymmetry, she denies paresthesia or decreased sensation to her face. Given the patient's worrisome symptoms, she is being admitted to the hospitalist service. The patient has few risk factors for cardiovascular disease - she has no PMH other than R renal inufficiency (~25% function) and a family history of heart disease. Will consult cardiology and plan for stress test as well as ECHOcardiogram. Additionally, plan to obtain MRI head and Cspine given her presenting symptoms. Again, the patient does not have many risk factors for a stroke, but it is considered to be a possibility. Other differential diagnoses include cord compression and multiple sclerosis. The patient states she works at [employer], and is often lifting heavy objects at work. Hospital Course Hospital Course: TIA and chest pain workup negative. The patient still exhibits L sided weakness and ataxia, even at the time of discharge. She was sent home with a walker and close f/u to a neurologist. Additionally, the patient was urged to see a environmental advisor. She was discharged on statin therapy and ASA, as well as a prescription for flexeril for muscular pain. Physical Exam Vital Signs: Temp Pulse Resp BP Pulse Ox 98.9 F 72 16 106/57 L 98 06/28/17 15:12 06/28/17 15:12 06/28/17 15:12 06/28/17 15:12 06/28/17 15:12 Results Laboratory Results: 06/27/17 06:11 06/27/17 06:11 06/26/17 06/26/17 06/27/17 14:41 20:02 02:10 Troponin I < 0.012 < 0.012 < 0.012 Impressions: Cervical Spine MRI 06/26/17 00:00 IMPRESSION: NORMAL MRI CERVICAL SPINE WITHOUT AND WITH CONTRAST. Head MRI 06/26/17 00:00 IMPRESSION: NORMAL MRI OF THE BRAIN WITHOUT AND WITH INTRAVENOUS GADOLINIUM CONTRAST. EVIDENCE OF ACUTE STROKE: NO. Chest X-Ray 06/26/17 07:44 IMPRESSION: NO ACUTE RADIOGRAPHIC FINDING IN THE CHEST. Head CT 06/26/17 09:44 IMPRESSION: No CT evidence of acute ischemic change, acute intracranial hemorrhage, mass effect, or midline shift. Air bubbles in the cavernous sinuses and right and left temporal fossa soft tissues likely related to air in the patient's IV EVIDENCE OF ACUTE STROKE: NO. Carotid Doppler Study 06/27/17 00:00 IMPRESSION: NO HEMODYNAMICALLY SIGNIFICANT STENOSIS. Status: Imported from PACS Qualifiers - * PATIENT BEING DISCHARGED WITH ANY OF THE FOLLOWING DIAGNOSIS: No Plan Discharge Plan: Discharge home with f/u to cardiology Time Spent: Less than 30 Minutes
== END 2017-06-28 15:45 | disposition home health service (06) ==
LOC: ER 07:32 → EH 12:21 → 5 15:11
PROVIDERS: ADMIT Internal Medicine; ATTEND Internal Medicine
DX: R07.89 Other chest pain (principal); R53.1 Weakness; R27.0 Ataxia, unspecified; M79.602 Pain in left arm; D64.9 Anemia, unspecified; E78.5 Hyperlipidemia, unspecified; E66.9 Obesity, unspecified; R00.2 Palpitations; R06.02 Shortness of breath; R20.2 Paresthesia of skin; H53.9 Unspecified visual disturbance; R51 Headache; R41.0 Disorientation, unspecified; M79.1 Myalgia; Z68.33 Body mass index [BMI] 33.0-33.9, adult; N28.9 Disorder of kidney and ureter, unspecified; Z87.891 Personal history of nicotine dependence; Z90.12 Acquired absence of left breast and nipple; Z85.41 Personal history of malignant neoplasm of cervix uteri; Z82.49 Family history of ischemic heart disease and other diseases of the circulatory system; Z79.82 Long term (current) use of aspirin; Z79.899 Other long term (current) drug therapy; Z85.3 Personal history of malignant neoplasm of breast; Z84.1 Family history of disorders of kidney and ureter; Z98.51 Tubal ligation status; Z82.3 Family history of stroke; Z98.890 Other specified postprocedural states
CPT/HCPCS: 93005 ×2; 99285; 96374; 96375; 36415 ×2; 82553; 82550; 83735; 84100; 84443; 85025; 85027; 85652; 80048; 80053; 81001; 84484 ×2; 80061; 93306; 93017; 93880; 70553; 72156; 71045; 78452; 70450; 93010 ×2; 97110; 97163; 97167; G0378 ×4; A9500; J2785; J3360; J1885; J3490 ×2; J7030; J0280; Q9969

== ENCOUNTER → 2017-07-18 | Outpatient (CLI) | payer OTHER ==
[2017-07-18 16:59] LABS: ABSOLUTE BASOPHILS # (AUTO) 0.1 10^3/uL (0.0-0.2); ABSOLUTE EOSINOPHILS # (AUTO) 0.1 10^3/uL (0.0-0.6); ABSOLUTE LYMPHOCYTES (AUTO) 1.2 10^3/uL (0.5-4.7); ABSOLUTE MONOCYTES (AUTO) 0.3 10^3/uL (0.1-1.4); ABSOLUTE NEUT (AUTO) 3.3 10^3/uL (1.7-8.2); BASOPHILS % (AUTO) 1.3 % (0-2); HEMATOCRIT 30.7 % (36.0-47.0); HEMOGLOBIN 9.6 g/dL (12.0-15.5); LYMPHOCYTES % (AUTO) 25.2 % (13-45); MEAN CORPUSCULAR HEMOGLOBIN 22.3 pg (27.0-33.4); MEAN CORPUSCULAR HGB CONC 31.3 g/dL (32.0-36.0); MEAN CORPUSCULAR VOLUME 71 fl (80-97); MONOCYTES % (AUTO) 5.9 % (3-13); PLATELET COUNT 213 10^3/uL (150-450); RED BLOOD COUNT 4.29 10^6/uL (3.72-5.28); RED CELL DISTRIBUTION WIDTH 18.3 % (11.5-14.0); SEGMENTED NEUTROPHILS % (AUTO) 66.6 % (42-78); TOTAL CELLS COUNTED % (AUTO) 100 %; WHITE BLOOD COUNT 4.9 10^3/uL (4.0-10.5)
[2017-07-18 17:25] LABS: IRON 27.1 ug/dL (37-170)
[2017-07-18 17:57] LABS: FERRITIN 4.93 ng/mL (6.2-137.0)
[2017-07-18 18:28] LABS: FOLATE 10.4 ng/mL (>2.76)
== END ==
LOC: CCC 16:25
DX: I63.9 Cerebral infarction, unspecified (principal); D64.9 Anemia, unspecified
CPT/HCPCS: 36415; 82607; 82728; 82746; 83540; 85025

== ENCOUNTER 2017-08-01 18:58 | Emergency (ER) | payer OTHER ==
[2017-08-01] MEDS ORDERED: ONDANSETRON HCL INJ/PF 4 MG/2 ML SDV IV ONE (19:21)
[2017-08-01] MEDS ORDERED: MECLIZINE HCL 25 MG TABLET PO ONE (19:21)
--- NOTE | 2017-08-01 19:23 | ER Document Report ---
ED General - General Chief Complaint: Dizziness Stated Complaint: BLURRED VISION Time Seen by Provider: 08/01/17 19:08 Notes: Patient is a 42-year-old female comes emergency department for chief complaint of dizziness, weakness, nausea. She comes by EMS. She states that she feels weak all over, but worse in her left arm and left leg. She states she started feeling this way last night, this worsened today prior to arrival. She states that she opens her eyes she feels like she is spinning around. She states she felt this way once before, this was over a month ago, she had a full workup including MRI of the head. She denies recent illness, fever or chills, vomiting , chest pain, shortness of breath. She states she was told that she is anemic, she is on iron, she also has hyperlipidemia, she denies any other medical history. TRAVEL OUTSIDE OF THE [place] IN LAST 30 DAYS: No - Related Data Allergies/Adverse Reactions: No Known Allergies Allergy (Verified 06/26/17 08:27) Past Medical History - General Information source: Patient - Social History Smoking Status: Never Smoker Frequency of alcohol use: None Drug Abuse: None Lives with: Family Family History: CAD Patient has suicidal ideation: No Patient has homicidal ideation: No - Past Medical History Cardiac Medical History: Reports: Hx Hypercholesterolemia Renal/ Medical History: Denies: Hx Peritoneal Dialysis Malignancy Medical History: Reports: Hx Breast Cancer, Hx Cervical Cancer Past Surgical History: Reports: Hx Breast Surgery - left lumpectomy, Hx Genitourinary Surgery - LEEP, Hx Mastectomy - left, Hx Tubal Ligation Review of Systems - Review of Systems Constitutional: No symptoms reported EENT: No symptoms reported Cardiovascular: No symptoms reported Respiratory: No symptoms reported Gastrointestinal: See HPI Genitourinary: No symptoms reported Female Genitourinary: No symptoms reported Musculoskeletal: See HPI Skin: No symptoms reported Hematologic/Lymphatic: No symptoms reported Neurological/Psychological: See HPI Physical Exam - Vital signs Vitals: Resp BP Pulse Ox 24 H 124/76 100 08/01/17 19:06 08/01/17 19:06 08/01/17 19:06 - Notes Notes: GENERAL: Alert, interacts well. No acute distress. HEAD: Normocephalic, atraumatic. EYES: Pupils equal, round, and reactive to light. Extraocular movements intact. ENT: Oral mucosa moist, tongue midline. NECK: Full range of motion. Supple. Trachea midline. LUNGS: Clear to auscultation bilaterally, no wheezes, rales, or rhonchi. No respiratory distress. HEART: Regular rate and rhythm. No murmur ABDOMEN: Soft, non-tender. Non-distended. Bowel sounds present in all 4 quadrants. EXTREMITIES: Right side extremity movement is normal, left side leg has weakness , patient will barely move it, normal sensation and capillary refill in this leg. Left arm strength appears normal. No edema, normal radial and dorsalis pedis pulses bilaterally. No cyanosis. BACK: no cervical, thoracic, lumbar midline tenderness. No saddle anesthesia, normal distal neurovascular exam. NEUROLOGICAL: Alert and oriented x3. Normal speech. [cranial nerves II through XII grossly intact]. PSYCH: Normal affect, normal mood. SKIN: Warm, dry, normal turgor. No rashes or lesions noted. Course - Re-evaluation Re-evalutation: Patient sitting with her eyes closed on the bed, tries not to move, states when she opens her eyes she feels worse. She cannot move her left leg for me, states it is too weak, however nurse reports to me that she walked from the EMS stretcher to the bed. 08/01/17 Review of records shows that go for left-sided weakness which she also has today , it is the same, patient and mother at bedside confirm that her left-sided weakness is not new and it is unchanged and they are supposed to be following up with neurology for this. She had an MRI of the head, carotid Dopplers, the patient was provided with aspirin, Lipitor, and a walker and instructed to follow-up with neurology which has not happened yet. The acute presentation today is the sensation of dizziness nausea which patient has been medicated. Initial CAT scan had been performed, this shows no acute etiology. CBC shows anemia but this is improved from 1 month ago at hemoglobin of 10 now, chemistry unremarkable, chest x-ray unremarkable. On reevaluation patient states she actually feels much better after the meclizine and nausea medication, she is sitting up with her eyes open, she states she still feels a little bit dizzy but she feels much better. Patient was given Ativan, reevaluated again, now she stands with cold, states she feels significantly better. Suspect this is vestibular neuritis, no evidence of stroke with ongoing left-sided weakness which is chronic and no acute etiology otherwise with resolved symptoms after medications. Discussed with patient and family, discussed follow-up, return precautions, they state satisfaction and agreement. - Vital Signs Vital signs: Temp Pulse Resp BP Pulse Ox 98.1 F 71 16 125/80 98 08/01/17 23:21 08/01/17 23:21 08/01/17 23:21 08/01/17 23:21 08/01/17 23:21 - Laboratory Result Diagrams: 08/01/17 19:02 08/01/17 19:02 Laboratory results interpreted by me: 08/01/17 08/01/17 19:02 19:02 Hgb 10.1 L Hct 31.9 L MCV 72 L MCH 23.0 L MCHC 31.8 L RDW 19.0 H Glucose 121 H Discharge - Discharge Clinical Impression: Dizziness, Nausea, Vertigo Condition: Stable Disposition: HOME, SELF-CARE Additional Instructions: Your symptoms that are new since yesterday are most consistent with vestibular neuritis, a temporary disease of the inner ear. Take the medications prescribed for this. Follow-up with neurology as planned for ongoing left-sided weakness/numbness symptoms. Return the emergency department for any concerning symptoms - fever, severe vomiting, or any other concerning or worsening symptoms. Prescriptions: Lorazepam [Ativan 1 mg Tablet] 1 mg PO Q4 PRN #12 tab PRN Reason: Meclizine HCl [Antivert 25 mg Tablet] 25 mg PO TID PRN #21 tablet PRN Reason: Ondansetron [Zofran Odt 4 mg Tablet] 1 - 2 tab PO Q4H PRN #15 tab.rapdis PRN Reason: For Nausea/Vomiting
[2017-08-01 19:45] LABS: ABSOLUTE BASOPHILS # (AUTO) 0.1 10^3/uL (0.0-0.2); ABSOLUTE EOSINOPHILS # (AUTO) 0.1 10^3/uL (0.0-0.6); ABSOLUTE LYMPHOCYTES (AUTO) 1.3 10^3/uL (0.5-4.7); ABSOLUTE MONOCYTES (AUTO) 0.5 10^3/uL (0.1-1.4); ABSOLUTE NEUT (AUTO) 4.3 10^3/uL (1.7-8.2); EOSINOPHILS % (AUTO) 1.5 % (0-6); HEMATOCRIT 31.9 % (36.0-47.0); HEMOGLOBIN 10.1 g/dL (12.0-15.5); LYMPHOCYTES % (AUTO) 21.2 % (13-45); MEAN CORPUSCULAR HGB CONC 31.8 g/dL (32.0-36.0); MEAN CORPUSCULAR VOLUME 72 fl (80-97); MONOCYTES % (AUTO) 7.2 % (3-13); PLATELET COUNT 240 10^3/uL (150-450); RED BLOOD COUNT 4.41 10^6/uL (3.72-5.28); SEGMENTED NEUTROPHILS % (AUTO) 69.1 % (42-78); TOTAL CELLS COUNTED % (AUTO) 100 %; WHITE BLOOD COUNT 6.3 10^3/uL (4.0-10.5)
--- NOTE | 2017-08-01 19:45 | RADIOLOGY REPORT (SQ) ---
EXAM DESCRIPTION: CT HEAD WITHOUT COMPLETED DATE/TIME: 08/01/2017 7:37 pm REASON FOR STUDY: dizziness, left sided weakness COMPARISON: 06/26/2017. TECHNIQUE: Axial images acquired through the brain without intravenous contrast. Images reviewed wi th bone, brain and subdural windows. Additional sagittal and coronal reconstructions were generated. Images stored on PACS. All CT scanners at this facility use dose modulation, iterative reconstruction, and/or weight based d osing when appropriate to reduce radiation dose to as low as reasonably achievable (ALARA). [facility]: Dose Right [facility]: CareDose [facility]: Dose Right [facility]: Teradose 4D [facility]: [employer] [facility] RADIATION DOSE: CT Rad equipment meets quality standard of care and radiation dose reduction techniq ues were employed. CTDIvol: 53.2 mGy. DLP: 911 mGy-cm. mGy. LIMITATIONS: None. FINDINGS: VENTRICLES: Normal size and contour. CEREBRUM: No masses. No hemorrhage. No midline shift. No evidence for acute infarction. Normal gra y/white matter differentiation. No areas of low density in the white matter. CEREBELLUM: No masses. No hemorrhage. No alteration of density. No evidence for acute infarction. EXTRAAXIAL SPACES: No fluid collections. No masses. ORBITS AND GLOBE: No intra- or extraconal masses. Normal contour of globe without masses. CALVARIUM: No fracture. PARANASAL SINUSES: No fluid or mucosal thickening. SOFT TISSUES: No mass or hematoma. OTHER: No other significant finding. IMPRESSION: NORMAL BRAIN CT WITHOUT CONTRAST. EVIDENCE OF ACUTE STROKE: NO. COMMENT: Quality ID # [id number]: Final reports with documentation of one or more dose reduction techniques (e.g., Automated exposure control, adjustment of the mA and/or kV according to patient size, use of iterative reconstruction technique) TECHNICAL DOCUMENTATION: JOB ID: [id number] [employer]- All Rights Reserved Reading location - IP/workstation name: [email or web address]
--- NOTE | 2017-08-01 19:45 | RADIOLOGY REPORT (SQ) ---
EXAM DESCRIPTION: CHEST SINGLE VIEW COMPLETED DATE/TIME: 08/01/2017 7:37 pm REASON FOR STUDY: weakness COMPARISON: 06/26/2017. EXAM PARAMETERS: NUMBER OF VIEWS: One view. TECHNIQUE: Single frontal radiographic view of the chest acquired. RADIATION DOSE: NA LIMITATIONS: None. FINDINGS: LUNGS AND PLEURA: No opacities, masses or pneumothorax. No pleural effusion. MEDIASTINUM AND HILAR STRUCTURES: No masses. Contour normal. HEART AND VASCULAR STRUCTURES: Heart normal in size. Normal vasculature. BONES: No acute findings. HARDWARE: None in the chest. OTHER: No other significant finding. IMPRESSION: NO ACUTE RADIOGRAPHIC FINDING IN THE CHEST. TECHNICAL DOCUMENTATION: JOB ID: [id number] [employer]- All Rights Reserved Reading location - IP/workstation name: [email or web address]
[2017-08-01 19:52] LABS: ALANINE AMINOTRANSFERASE 15 U/L (9-52); ALBUMIN 4.7 g/dL (3.5-5.0); ALKALINE PHOSPHATASE 53 U/L (38-126); ANION GAP 16 (5-19); ASPARTATE AMINO TRANSFERASE 26 U/L (14-36); BILIRUBIN,DIRECT 0.4 mg/dL (0.0-0.4); BILIRUBIN,TOTAL 0.8 mg/dL (0.2-1.3); BLOOD UREA NITROGEN 12 mg/dL (7-20); CALCIUM 9.9 mg/dL (8.4-10.2); CARBON DIOXIDE 23 mmol/L (22-30); CHLORIDE 106 mmol/L (98-107); CREATINE KINASE 47 U/L (30-135); GLUCOSE 121 mg/dL (75-110); POTASSIUM 3.6 mmol/L (3.6-5.0); SODIUM 144.8 mmol/L (137-145); TOTAL PROTEIN 8.1 g/dL (6.3-8.2)
[2017-08-01 20:05] LABS: CREATINE KINASE MB < 0.22 ng/mL (<4.55); TROPONIN I < 0.012 ng/mL
[2017-08-01] MEDS ORDERED: METOCLOPRAMIDE HCL INJ/PF 10 MG/2 ML SDV IV ONE (20:26)
[2017-08-01] MEDS ORDERED: LORAZEPAM 1 MG TABLET PO ONE (21:17)
[2017-08-01] MEDS ORDERED: ONDANSETRON ODT 4 MG TAB (6 TAB/ER DISP) PO PRN (23:09)
[2017-08-01 23:23] VITALS: BP 125/80
--- NOTE | 2017-08-02 07:47 | EKG REPORT ---
SEVERITY:- NORMAL ECG - SINUS RHYTHM : Confirmed by: Tyler Ray MD 02-Aug-2017 07:46:13
== END 2017-08-01 23:30 | disposition home or self-care (01) ==
LOC: ER 18:58
DX: R42 Dizziness and giddiness (principal); R11.0 Nausea; H53.8 Other visual disturbances; R53.1 Weakness; D64.9 Anemia, unspecified; E78.5 Hyperlipidemia, unspecified
CPT/HCPCS: 93005; 99284; 96374; 36415; 82553; 82962; 82550; 85025; 80053; 84484; 71045; 70450; 93010; J2765

== ENCOUNTER → 2017-08-08 | Outpatient (CLI) | payer OTHER ==
--- NOTE | 2017-08-08 21:06 | RADIOLOGY REPORT (SQ) ---
EXAM DESCRIPTION: MRI THORACIC SPINE WITHOUT COMPLETED DATE/TIME: 08/08/2017 8:33 pm REASON FOR STUDY: M62.81 MUSCLE WEAKNESS (GENERALIZED) M62.81 MUSCLE WEAKNESS (GENERALIZED) COMPARISON: None. TECHNIQUE: Sagittal and Axial imaging includes T1, T2, STIR and gradient echo sequences. LIMITATIONS: None. FINDINGS: LOCALIZER: No worrisome findings. ALIGNMENT: Normal. VERTEBRAE: Intact. BONE MARROW: Normal. No marrow replacement or reactive changes. HARDWARE: None in the spine. CORD: Normal in size and signal intensity. Conus medullaris lies at T12-L1. SOFT TISSUES: No soft tissue masses. THORACIC DISCS T1-T12: There is focal disc protrusion in the left paracentral location that T7-T8 kirby t deforms the spinal cord. LOWER CERVICAL: Incompletely imaged. No significant spinal stenosis or exit foraminal stenosis. UPPER LUMBAR: Incompletely imaged. No significant spinal stenosis or exit foraminal stenosis. OTHER: No other significant finding. 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 TECHNICAL DOCUMENTATION: JOB ID: [id number] [employer]- All Rights Reserved Reading location - IP/workstation name: [email or web address]
--- NOTE | 2017-08-08 22:16 | RADIOLOGY REPORT (SQ) ---
EXAM DESCRIPTION: MRI LUMBAR SPINE WITHOUT COMPLETED DATE/TIME: 08/08/2017 9:01 pm REASON FOR STUDY: M62.81 M62.81 MUSCLE WEAKNESS (GENERALIZED) COMPARISON: None. TECHNIQUE: Sagittal and Axial imaging includes T1, T2, STIR and gradient echo sequences. Coronal T2/ HASTE imaging. LIMITATIONS: None. FINDINGS: VISUALIZED UPPER ABDOMEN: Limited evaluation. No acute or suspicious findings suggested. SEGMENTATION: No transitional anatomy. The lowest well-developed disc space is labeled L5-S1. ALIGNMENT: Anatomic. VERTEBRAE: Intact. BONE MARROW: Normal. No marrow replacement or reactive changes. DISC SIGNAL: Normal. No significant abnormal signal or loss of height. POSTERIOR ELEMENTS: Generally intact. No pars defect evident. HARDWARE: None in the spine. CORD AND CONUS: Normal in size and signal intensity. Conus at the T12-L1 level. SOFT TISSUES: No aortic aneurysm seen. No bulky retroperitoneal adenopathy or mass. No paraspinal mas s or fluid. L1-L2: No significant spinal stenosis or exit foraminal stenosis. L2-L3: No significant spinal stenosis or exit foraminal stenosis. L3-L4: No significant spinal stenosis or exit foraminal stenosis. L4-L5: No significant spinal stenosis or exit foraminal stenosis. L5-S1: No significant spinal stenosis or exit foraminal stenosis. LOWER THORACIC: Incompletely imaged. No stenosis seen. SACRUM: Visualized upper sacrum intact. OTHER: No other significant findings. IMPRESSION: NORMAL MRI LUMBAR SPINE. TECHNICAL DOCUMENTATION: JOB ID: [id number] [employer]- All Rights Reserved Reading location - IP/workstation name: [email or web address]
== END ==
LOC: RAD 20:11
DX: M62.81 Muscle weakness (generalized) (principal); M51.24 Other intervertebral disc displacement, thoracic region
CPT/HCPCS: 72146; 72148

== ENCOUNTER → 2017-08-30 | Outpatient (CLI) | payer OTHER ==
[2017-08-30 11:35] LABS: ABSOLUTE RETICS # 0.061 10^6/uL (0.028-0.122); RETICULOCYTE COUNT (AUTO) 1.37 % (0.66-2.85)
== END ==
LOC: CCC 11:04
DX: D64.9 Anemia, unspecified (principal)
CPT/HCPCS: 36415; 85045

== ENCOUNTER → 2017-09-05 | Outpatient (CLI) | payer OTHER ==
[2017-09-05 15:02] LABS: ABSOLUTE BASOPHILS # (AUTO) 0.1 10^3/uL (0.0-0.2); ABSOLUTE EOSINOPHILS # (AUTO) 0.1 10^3/uL (0.0-0.6); ABSOLUTE LYMPHOCYTES (AUTO) 1.1 10^3/uL (0.5-4.7); ABSOLUTE MONOCYTES (AUTO) 0.3 10^3/uL (0.1-1.4); ABSOLUTE NEUT (AUTO) 3.5 10^3/uL (1.7-8.2); BASOPHILS % (AUTO) 1.1 % (0-2); EOSINOPHILS % (AUTO) 1.4 % (0-6); HEMATOCRIT 35.4 % (36.0-47.0); HEMOGLOBIN 11.8 g/dL (12.0-15.5); LYMPHOCYTES % (AUTO) 21.3 % (13-45); MEAN CORPUSCULAR HEMOGLOBIN 27.4 pg (27.0-33.4); MEAN CORPUSCULAR HGB CONC 33.2 g/dL (32.0-36.0); MEAN CORPUSCULAR VOLUME 82 fl (80-97); MONOCYTES % (AUTO) 6.1 % (3-13); PLATELET COUNT 177 10^3/uL (150-450); RED BLOOD COUNT 4.29 10^6/uL (3.72-5.28); RED CELL DISTRIBUTION WIDTH 25.6 % (11.5-14.0); SEGMENTED NEUTROPHILS % (AUTO) 70.1 % (42-78); TOTAL CELLS COUNTED % (AUTO) 100 %
[2017-09-05 15:36] LABS: TOXIC GRANULATION SLIGHT
[2017-09-05 15:37] LABS: ANISOCYTOSIS 3+; OVALOCYTES SLIGHT; PLATELET COMMENT ADEQUATE; POIKILOCYTOSIS 1+
== END ==
LOC: CCC 13:22
DX: D64.9 Anemia, unspecified (principal)
CPT/HCPCS: 36415; 85025

== ENCOUNTER → 2017-10-24 | Outpatient (CLI) | payer OTHER ==
--- NOTE | 2017-10-24 10:23 | WOMENS IMAGING REPORT ---
EXAM DESCRIPTION: BILAT SCREENING MAMMO W/CAD COMPLETED DATE/TIME: 10/24/2017 8:35 am REASON FOR STUDY: SCREENING ALU[place]O97.31 ENCNTR SCREEN MAMMOGRAM FOR MALIGNANT NEOPLASM OF NANCY COMPARISON: No previous available. Re-establish baseline TECHNIQUE: Standard craniocaudal and mediolateral oblique views of each breast recorded using Vision 360 Degres (V3D)a l acquisition. LIMITATIONS: None. FINDINGS: RIGHT BREAST MASSES: Well-circumscribed low-density masses are present in the right breast 12 o'clock position, 2 to 5 cm from the nipple. These most likely represent breast parenchymal cysts. Follow-up ultrasound recommended for these findings. CALCIFICATIONS: No new or suspicious calcifications. ARCHITECTURAL DISTORTION: None. DEVELOPING DENSITY: None. ASYMMETRY: None noted. OTHER: No other significant findings. LEFT BREAST MASSES: In the 10 o'clock position, 7 cm from the nipple a 1 cm nodule with border loss is present fo r which cone compression CC MLO views, left breast 90 mediolateral view and left breast ultrasound a re recommended for followup. CALCIFICATIONS: No new or suspicious calcifications. ARCHITECTURAL DISTORTION: None. DEVELOPING DENSITY: None. ASYMMETRY: None noted. OTHER: No other significant findings. Read with the assistance of CAD. .[facility] - R2 Cenova Version 1.3 .[facility] Imaging - R2 Cenova Version 1.3 .[facility] Imaging - R2 Cenova Version 2.4 .[facility] - R2 Cenova Version 2.4 .[facility] - R2 Slip Tender Version 9.2 IMPRESSION: Probable right breast parenchymal cysts for which follow-up right breast ultrasound is r ecommended. Nodule versus superimposed shadows left breast 10 o'clock position 7 cm from the nipple for which criss gnostic mammograms and ultrasound are recommended for followup BREAST DENSITY: c. The breasts are heterogeneously dense, which may obscure small masses. BIRAD: 0 Incomplete: Needs Additional Imaging Evaluation and/or prior Mammograms for Comparison. RECOMMENDATION: RECOMMENDED FOLLOW-UP: Right breast ultrasound, left breast diagnostic mammograms an d ultrasound The patient will be contacted for additional imaging. COMMENT: The patient has been notified of the results by letter per SA requirements. Additional no tification policies are in place for contacting patient with suspicious or incomplete findings. Quality ID #225: The [employer] recommends an annual screening mammogram for women aged 40 years or over. This facility utilizes a reminder system to ensure that all patients receive reminder letters, and/or direct phone calls for appointments. This includes reminders for routine scr eening mammograms, diagnostic mammograms, or other Breast Imaging Interventions when appropriate. Th is patient will be placed in the appropriate reminder system. The [employer] (ACR) has developed recommendations for screening MRI of the breast s in certain patient populations, to be used in conjunction with mammography. Breast MRI surveillanc e may be appropriate for women with more than 20% lifetime risk of developing breast cancer as deter mined by genetic testing, significant family history of the disease, or history of mantle radiation f or Hodgkins Disease. ACR Practice Guidelines 2008. TECHNICAL DOCUMENTATION: FINDING NUMBER: (1) ASSESSMENT: (1) JOB ID: [id number] [employer]- All Rights Reserved Reading location - IP/workstation name: [email or web address]
== END ==
LOC: WI 08:01
PROVIDERS: ATTEND Family Medicine
DX: Z12.31 Encounter for screening mammogram for malignant neoplasm of breast (principal); R92.2 Inconclusive mammogram
CPT/HCPCS: 77067

== ENCOUNTER → 2017-11-05 | Outpatient (CLI) | payer MEDICAID, OTHER ==
--- NOTE | 2017-11-05 12:55 | WOMENS IMAGING REPORT ---
EXAM DESCRIPTION: BILAT DIAGNOSTIC MAMMO W/CAD; U/S BREAST UNILAT LIMITED COMPLETED DATE/TIME: 11/05/2017 11:33 am; 11/05/2017 12:40 pm REASON FOR STUDY: BILATERAL BREAST MASSES; RIGHT BREAST; N63.41; LEFT BREAST; N63.22 N63.41 UNSPECI FIED LUMP IN RIGHT BREAST, SUBAREOLAR N63.22 UNSPECIFIED LUMP IN THE LEFT BREAST, UPPER INNER QUAD COMPARISON: 10/24/2017 TECHNIQUE: Cc, MLO, true lateral and cone compression views. LIMITATIONS: None. FINDINGS: LEFT BREAST MASSES: No suspicious masses. CALCIFICATIONS: No new or suspicious calcifications. ARCHITECTURAL DISTORTION: None. DEVELOPING DENSITY: None. ASYMMETRY: None noted. OTHER: No other significant findings. Ultrasound of both breasts was performed. Multiple cysts in both breasts. No solid lesion. IMPRESSION: Benign cysts. BREAST DENSITY: b. There are scattered areas of fibroglandular density. BIRAD: 2 Benign findings. RECOMMENDATION: RECOMMENDED FOLLOW UP: Birads 1 or 2: The patient should resume routine screening . SPECIFIC INTERVENTION/IMAGING/CONSULTATION RECOMMENDED:No additional intervention/ imaging/consultati on needed at this time. COMMUNICATION:The imaging findings were not discussed with the patient. Her referring provider has be en notified of the findings. COMMENT: The patient has been notified of the results by letter per SA requirements. Additional no tification policies are in place for contacting patient with suspicious or incomplete findings. Quality ID #225: The [employer] recommends an annual screening mammogram for women aged 40 years or over. This facility utilizes a reminder system to ensure that all patients receive reminder letters, and/or direct phone calls for appointments. This includes reminders for routine scr eening mammograms, diagnostic mammograms, or other Breast Imaging Interventions when appropriate. Th is patient will be placed in the appropriate reminder system. The [employer] (ACR) has developed recommendations for screening MRI of the breast s in certain patient populations, to be used in conjunction with mammography. Breast MRI surveillanc e may be appropriate for women with more than 20% lifetime risk of developing breast cancer as deter mined by genetic testing, significant family history of the disease, or history of mantle radiation f or Hodgkins Disease. ACR Practice Guidelines 2008. TECHNICAL DOCUMENTATION: FINDING NUMBER: (1) ASSESSMENT: (1) JOB ID: [id number] [employer]- All Rights Reserved Reading location - IP/workstation name: [email or web address]
--- NOTE | 2017-11-05 12:55 | WOMENS IMAGING REPORT ---
EXAM DESCRIPTION: BILAT DIAGNOSTIC MAMMO W/CAD; U/S BREAST UNILAT LIMITED COMPLETED DATE/TIME: 11/05/2017 11:33 am; 11/05/2017 12:40 pm REASON FOR STUDY: BILATERAL BREAST MASSES; RIGHT BREAST; N63.41; LEFT BREAST; N63.22 N63.41 UNSPECI FIED LUMP IN RIGHT BREAST, SUBAREOLAR N63.22 UNSPECIFIED LUMP IN THE LEFT BREAST, UPPER INNER QUAD COMPARISON: 10/24/2017 TECHNIQUE: Cc, MLO, true lateral and cone compression views. LIMITATIONS: None. FINDINGS: LEFT BREAST MASSES: No suspicious masses. CALCIFICATIONS: No new or suspicious calcifications. ARCHITECTURAL DISTORTION: None. DEVELOPING DENSITY: None. ASYMMETRY: None noted. OTHER: No other significant findings. Ultrasound of both breasts was performed. Multiple cysts in both breasts. No solid lesion. IMPRESSION: Benign cysts. BREAST DENSITY: b. There are scattered areas of fibroglandular density. BIRAD: 2 Benign findings. RECOMMENDATION: RECOMMENDED FOLLOW UP: Birads 1 or 2: The patient should resume routine screening . SPECIFIC INTERVENTION/IMAGING/CONSULTATION RECOMMENDED:No additional intervention/ imaging/consultati on needed at this time. COMMUNICATION:The imaging findings were not discussed with the patient. Her referring provider has be en notified of the findings. COMMENT: The patient has been notified of the results by letter per SA requirements. Additional no tification policies are in place for contacting patient with suspicious or incomplete findings. Quality ID #225: The [employer] recommends an annual screening mammogram for women aged 40 years or over. This facility utilizes a reminder system to ensure that all patients receive reminder letters, and/or direct phone calls for appointments. This includes reminders for routine scr eening mammograms, diagnostic mammograms, or other Breast Imaging Interventions when appropriate. Th is patient will be placed in the appropriate reminder system. The [employer] (ACR) has developed recommendations for screening MRI of the breast s in certain patient populations, to be used in conjunction with mammography. Breast MRI surveillanc e may be appropriate for women with more than 20% lifetime risk of developing breast cancer as deter mined by genetic testing, significant family history of the disease, or history of mantle radiation f or Hodgkins Disease. ACR Practice Guidelines 2008. TECHNICAL DOCUMENTATION: FINDING NUMBER: (1) ASSESSMENT: (1) JOB ID: [id number] [employer]- All Rights Reserved Reading location - IP/workstation name: [email or web address]
== END ==
LOC: WI 11:10
DX: N60.02 Solitary cyst of left breast (principal); N60.01 Solitary cyst of right breast
CPT/HCPCS: 76642; 77066

== ENCOUNTER 2018-05-07 00:29 | Emergency (ER) | payer OTHER | END 2018-05-07 00:48 | disposition left against medical advice (07) | LOC: ER 00:29 | DX: Z53.21 Procedure and treatment not carried out due to patient leaving prior to being seen by health care provider (principal); R21 Rash and other nonspecific skin eruption ==